=== PATIENT | female | born 1965 | race Caucasian/White ===

== ENCOUNTER → 2017-06-29 | Outpatient (CLI) | payer OTHER ==
[~2017-06-29] MED LIST: ALBU90OI INH; ALPR1 PO; ATOR10 PO; AZIT250 PO; CALCAVITD PO; ERGO400 PO; ESTR2 PO; GLIP2.5ER PO; GUMMY VITAMIN; HYDACE5 PO; KOMBIGLYZE XR1 EAC2 PO; LIOT25 PO; LISI20 PO; MAGNESIUM400 MG PO; METF500 PO; METHYLPHENIDATE27 MG PO; OXCA150 PO; Oxcarbazepine600 MG PO; Pravastatin Sod20 MG PO; TERB250 PO; TOPI100 PO; VENL150ER PO; VENL75ER PO
[2017-07-01 14:46] LABS: HPV Genotype 16 Not Detected (NOTDET); HPV Genotype 18 Not Detected (NOTDET)
[2017-07-07 09:35] LABS: HPV High Risk Other Not Detected (NOTDET)
== END | disposition home or self-care (01) ==
LOC: OLS 17:24 → LAB SHORT 17:24
PROVIDERS: Nurse Practitioner Women's Health
DX: Z12.72 Encounter for screening for malignant neoplasm of vagina (principal)
CPT/HCPCS: 87624; G0123

== ENCOUNTER → 2021-01-05 | Outpatient (CLI) | payer OTHER | LOC: LAB SHORT 16:20 | DX: R19.7 Diarrhea, unspecified (principal) | CPT/HCPCS: 87086 ==

== ENCOUNTER → 2021-01-07 | Outpatient (CLI) | payer OTHER ==
[2021-01-07 13:43] LABS: Stool Occult Bld Immuno 1 Negative (NEGATIVE)
== END ==
LOC: LAB 05:00 → LAB SHORT 05:00
PROVIDERS: Nurse Practitioner Family
DX: D64.9 Anemia, unspecified (principal); R19.7 Diarrhea, unspecified
CPT/HCPCS: G0328